=== PATIENT | female | born 1930 | race Caucasian/White ===

== ENCOUNTER 2018-07-16 12:13 | Inpatient (IN) | payer MEDICARE, BC ==
[~2018-07-16] VITALS: Ht 144.8 cm; Wt 44.1 kg
--- NOTE | ~2018-07-16 | HP ---
PATIENT: BLOSSOM JACKSON MEDICAL RECORD: [id number] ACCOUNT: [id number] LOCATION:ANDRAE Bridges1125 : [birth year] ADMISSION DATE: 07/16/18 PCP: THAD OLIVER MD HISTORY AND PHYSICAL EXAMINATION PSYCHIATRIC EVALUATION HISTORY OF PRESENT ILLNESS: Ms. Jackson is a [place] descent. 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 She is not known to have family in this area. She apparently went after having a brain aneurysm, went to a local retirement for a year and now is in apartment by herself. She has a friend that was bringing her food; however, the friend increasingly knows the food was left untouched. The patient was also found wandering down the streets by herself, confused, agitated, and was therefore danger to self. Friend brought her to a local Emergency Room facility for further evaluation and treatment. On interview, the patient has been, according to report, been going around the unit extremely agitated. She was not allowed per unit protocol to keep her cane and was offered a walker, but she keeps going around to staff and other patients stating that the doctor had told her to have her cane and has a piece of paper on her hand insisting that she needs to leave. When I could get her to be calm enough to answer questions, the patient did not know where she was. She told me; however, over and over that she went to two hospitals yesterday, which in fact she did at [facility] in here that she knew it was 2018, the last president she could remember was Judd. She had no idea why she was here or why she needed to be here. She would not answer questions as to suicidality, homicidality, auditory or visual hallucinations or delusions. PAST PSYCHIATRIC HISTORY: Unknown, but as far as the limited information we have, she has not had any prior history. PAST MEDICAL HISTORY: Per chart, brain aneurysm with STOCK HOLDER shunt, arthritis, osteoarthritis, dermatitis of the left ankle. ALLERGIES: SHE HAS STATED ALLERGIES TO PENICILLIN, DARVOCET AND LIPITOR. CURRENT MEDICATIONS: Include Kenalog 0.025% ointment one application topical b.i.d.; Norvasc (amlodipine) 5 mg 1 p.o. b.i.d.; triamterene/hydrochlorothiazide 75/50.5 one p.o. every day; Fosamax 70 mg 1 p.o. every 7 days; Nizoral 2% shampoo at bedtime; calcium carbonate 1 p.o. b.i.d. and multivitamin daily. FAMILY HISTORY: We are unsure of right now. SOCIAL HISTORY: As above. 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 Drugs and alcohol unclear at this moment, but there was no history per friend of this. LABORATORY DATA: Significant for an elevated BUN of 38, white count of 3.5. MENTAL STATUS EXAMINATION: This is an 87-year-old small woman of [place] descent, semi-cooperative with interview at bed, she did acknowledge my presence. After some urging, she would answer questions, but mainly was insistent on getting her cane back and telling me she has been to 2 hospitals. She had good eye contact. Her speech was rapid. Her mood was agitated. Her thought process was primarily irrational, irrelevant and goal directed thought HISTORY AND PHYSICAL [id number] RAMAKRISHNA,BLOSSOM SH content. She did not voice suicidal or homicidal ideation, auditory or visual hallucinations or delusions. Cognitive exam, she did not know where she was. She did know the year. She did not know the president. She was incorrect on the day, she thought it was Thursday and she thought the month was September. ASSESSMENT: Major neurocognitive disorder, mixed type, Alzheimer's, vascular, with behavioral disturbances, history of brain aneurysm with STOCK HOLDER shunt. PLAN: Admit to the group home standard. We will start the patient on Namenda, increasing dose starting at 2.5 mg b.i.d. to titrate upward weekly. We will consider Lamictal for behavioral agitation. APS has already been contacted as the patient does not seem to have any family support. We will also contact friend that brought her in to see to what extent of that person is willing to be official support for this patient. Dr. Ying to cover medical care. Case discussed with nursing. Chart was reviewed and the patient interviewed. Prognosis is likely poor. Anticipated length of stay is 7 to 14 days to better assess the patient's mental status and provide stabilization. Case discussed with nursing, interviewed and the patient reviewed. TRANSINT:[id number] Voice Confirmation ID: [id number] DOCUMENT ID: [id number] ESTRELLITA VOGT MD CC: [id number] DICTATION DATE: 07/17/18 1017 CLOTH SHRINKING SUPERVISOR: 07/17/18 1202 ADM IN [place] [id number] [place] [id number]
--- NOTE | ~2018-07-16 | PN ---
PATIENT:BLOSSOM DURBIN MEDICAL RECORD: [id number] LOCATION:Trina[facility]IC[facility]ay[facility] Bridges112 ADMISSION DATE: 07/16/18 PROGRESS NOTE DATE OF SERVICE: 07/19/2018 SUBJECTIVE: Ms. Durbin is an 87-year-old female of Martiniquais descent who had been living alone with the aid of a friend, but had apparently gotten so confused that she was wandering out in the street, becoming a danger to herself, not eating food brought to her. She here is verbally agitated physically with psychomotor agitation, constantly demanding. Has no insight into her limitations and just wants to go outside and walk with a cane and on interview will basically tell you over and over that her doctor had told her to go outside and walk with a cane. She had gotten so agitated last night that a p.r.n. was required. She ate 90% of breakfast and 0% of lunch and dinner. Her latest blood sugar is 99. She slept 6.25 hours last night and her last bowel movement was 07/18/2018. She does take her meds. OBJECTIVE: LATEST VITAL SIGNS: 97.9, 120, 146/70, 95%. ASSESSMENT: Unchanged. PLAN: ADS is involved in this patient as she clearly needs placement and is unable to take care of herself. She is supposed to ambulate with a walker, but as she does not like it and wants her cane, she is a fall risk and has required supervision for that fall risk and agitation. We have started Namenda over the weekend. Because of the agitation, we will add Geodon 20 mg once a day now considering her slight stature and heritage and we will increase to b.i.d. based on response. Case discussed with nursing. Chart reviewed and the patient interviewed. TRANSINT:[id number] Voice Confirmation ID: [id number] DOCUMENT ID: [id number] ESTRELLITA VOGT MD CC: [id number] DICTATION DATE: 07/19/18 120 PAPER TESTER: 07/19/18 1247 ADM IN [place] [address] [place] [address]
[2018-07-16] MEDS ORDERED: KENALOG 0.025%15 G2 TOPICAL (12:40)
[2018-07-16] MEDS ORDERED: NORVASC5 MG PO (12:41)
[2018-07-16] MEDS ORDERED: MAXZIDE 75/501 TAB PO (12:57)
[2018-07-16] MEDS ORDERED: ALENDRONATE SOD35 MG PO (12:58)
[2018-07-16] MEDS ORDERED: NIZORAL 2 % SH120 ML TOPICAL (12:58)
[2018-07-16] MEDS ORDERED: MULTI-DAY VITAM1 TAB PO (12:59)
[2018-07-16] MEDS ORDERED: CALCIUM 600 +1 EAC3 PO (12:59)
[2018-07-16 13:26] LABS: BASOPHILS 0.6 % (0-2); EOSINOPHILS 2.6 % (0-7); HEMOGLOBIN 12.3 g/dL (13.5-17.5); MCH 31.3 pg (26.0-34.0); MCHC 33.2 g/dL (31.0-37.0); MCV 94.1 fL (80.0-100.0); MEAN PLATELET VOLUME 8.6 fL (7.4-10.4); MONOCYTES 11.1 % (2-11); NEUTROPHILS 45.7 % (40-80); PLATELET COUNT 279 10x3/uL (130-400); RBC 3.93 10x6/uL (4.20-6.10); RDW 13.4 % (11.5-14.5); WBC 3.5 10x3/uL (4.8-10.8)
[2018-07-16 14:16] LABS: ALKALINE PHOSPHATASE 60 U/L (46-116); ALT (SGPT) 28 U/L (10-68); BILIRUBIN - TOTAL 0.29 mg/dL (0.2-1.3); CALC OSMOLALITY 285 mosm/kg (275-300); CALCIUM 10.1 mg/dL (8.5-10.1); CARBON DIOXIDE 23.5 mmol/L (21.0-32.0); CHLORIDE - SERUM 100 mmol/L (98-107); CHOL - HDL RATIO 3.6 ratio (2.3-4.9); CHOLESTEROL, TOTAL 242 mg/dL (0-200); GLUCOSE 154 mg/dL (74-106); HDL CHOLESTEROL 67 mg/dL (32-96); LDL CHOLESTEROL 147 mg/dL (0-100); LDL-HDL RATIO 2.2 ratio (1.5-3.5); POTASSIUM - SERUM 3.8 mmol/L (3.5-5.1); PROTEIN - SERUM 8.5 g/dL (6.4-8.2); SODIUM 137 mmol/L (136-145); THYROID STIMULATING HORMONE 1.17 uIU/mL (0.36-3.74); TRIGLYCERIDE 142 mg/dL (30-200); UREA NITROGEN 38 mg/dL (7-18); eGFR NON AFRICAN AMERICAN 75 mL/min (90-120)
[2018-07-16 20:00] VITALS: BP 113/70
[2018-07-16 20:25] VITALS: BP 139/69; BMI 21.0
[2018-07-17 06:15] LABS: VITAMIN D 25 HYDROXY 38.7 ng/mL (30.0-100.0)
[2018-07-17 08:16] LABS: RAPID PLASMA REAGIN Non Reactive (Non Reactive)
[2018-07-17 08:26] VITALS: BP 152/82
[2018-07-17 09:13] LABS: FOLATE (FOLIC ACID) - SERUM >20.0 ng/mL (>3.0)
[2018-07-17 11:57] VITALS: BMI 21.0
[2018-07-18 07:59] VITALS: BP 120/84
[2018-07-18 22:25] VITALS: BP 166/78
[2018-07-19 08:00] VITALS: BP 146/70
[2018-07-19 21:06] VITALS: BP 104/51
[2018-07-20 08:00] VITALS: BP 131/76
[2018-07-20 17:54] LABS: APPEARANCE CLEAR (CLEAR); BILIRUBIN NEGATIVE (NEGATIVE); COLOR YELLOW (YELLOW); GLUCOSE NEGATIVE (NEGATIVE); KETONE NEGATIVE (NEGATIVE); NITRITE NEGATIVE (NEGATIVE); PROTEIN NEGATIVE (NEGATIVE); SPECIFIC GRAVITY 1.015 (1.005-1.020); UROBILINOGEN NORMAL (NORMAL)
[2018-07-20 20:00] VITALS: BP 84/43
[2018-07-20 21:00] VITALS: BP 139/71
[2018-07-21 08:23] VITALS: BP 116/66
[2018-07-21 13:57] VITALS: BMI 21.0
[2018-07-21 13:58] VITALS: Ht 144.8 cm; Wt 44.1 kg
[2018-07-22 00:47] VITALS: BP 101/57
[2018-07-22 07:16] VITALS: BP 119/70
--- NOTE | 2018-07-22 15:50 | PN ---
PATIENT:BLOSSOM DURBIN MEDICAL RECORD: [id number] LOCATION:ANDRAE BridgesBandar ADMISSION DATE: 07/16/18 PROGRESS NOTE DATE OF SERVICE: 07/20/2018 SUBJECTIVE: The patient's case was discussed with staff. She has no new complaint. OBJECTIVE: The patient denies that she would seek to harm herself or others. She is much calmer, but clearly quite confused. ASSESSMENT: No change in diagnoses. PLAN: Supportive and educational interventions were made. Long-term prognosis is guarded. TRANSINT:[id number] Voice Confirmation ID: [id number] DOCUMENT ID: [id number] THAD OLIVER MD at 1550 CC: [id number] DICTATION DATE: 07/20/18 1635 PROGRAMMER DEVELOPER: 07/20/18 1652 ADM IN [place] [id number] [place] [address]
--- NOTE | 2018-07-22 15:50 | PN ---
PATIENT:BLOSSOM DURBIN MEDICAL RECORD: [id number] LOCATION:ANDRAE BridgesBandar ADMISSION DATE: 07/16/18 PROGRESS NOTE DATE OF SERVICE: 07/21/2018 SUBJECTIVE: The patient's case was discussed with staff. She has no new complaint. OBJECTIVE: The patient is in good behavioral control. She has limited insight about her condition. She tolerates her medicines well. ASSESSMENT: No change in diagnoses. PLAN: Brief supportive and educational interventions were made. Long-term prognosis is guarded. TRANSINT:[id number] Voice Confirmation ID: [id number] DOCUMENT ID: [id number] THAD OLIVER MD at 1550 CC: [id number] DICTATION DATE: 07/21/18 1643 WILDLIFE BIOLOGIST: 07/21/18 1748 ADM IN [place] [id number] [place] [address]
[2018-07-22 21:52] VITALS: BP 105/48
[2018-07-23 09:33] VITALS: BP 116/65
--- NOTE | 2018-07-23 13:53 | PN ---
PATIENT:BLOSSOM DURBIN MEDICAL RECORD: [id number] LOCATION:ANDRAE BridgesBandar ADMISSION DATE: 07/16/18 PROGRESS NOTE DATE OF SERVICE: 07/22/2018 SUBJECTIVE: The patient's case was discussed with staff. She has no new complaint. OBJECTIVE: The patient denies intent to harm herself or others. She is in good behavioral control. She does seem a little bit sleepy. ASSESSMENT: No change in diagnoses. PLAN: The patient will have her Seroquel reduced to 20 mg at bedtime. Her long-term prognosis is guarded. It is clear she is going to need fdc placement since she must have 18-dcff-y-day supervision and there is no one available who can provide that in a less restrictive environment. TRANSINT:[id number] Voice Confirmation ID: [id number] DOCUMENT ID: [id number] THAD OLIVER MD at 1353 CC: [id number] DICTATION DATE: 07/22/18 1708 MANOMETER TECHNICIAN: 07/22/18 2243 ADM IN [place] [id number] [place] [address]
[2018-07-23 20:00] VITALS: BP 116/67
[2018-07-24 08:27] VITALS: BP 113/65
--- NOTE | 2018-07-24 12:17 | PN ---
PATIENT:BLOSSOM DURBIN MEDICAL RECORD: [id number] LOCATION:ANDRAE BridgesBandar ADMISSION DATE: 07/16/18 PROGRESS NOTE DATE OF SERVICE: 07/23/2018 SUBJECTIVE: The patient's case was discussed with staff. She has no new complaint. OBJECTIVE: The patient is in good behavioral control with poor insight about her condition. She tolerates her medicines well. ASSESSMENT: No change in diagnoses. PLAN: Brief supportive and educational interventions were made. Long-term prognosis is guarded. TRANSINT:[id number] Voice Confirmation ID: [id number] DOCUMENT ID: [id number] THAD OLIVER MD at 1217 CC: [id number] DICTATION DATE: 07/23/18 1603 PREKINDERGARTEN TEACHER: 07/23/18 2317 ADM IN [place] [id number] [place] [address]
[2018-07-25 01:57] VITALS: BP 137/59
[2018-07-25 10:03] VITALS: BP 124/77
--- NOTE | 2018-07-25 11:49 | PN ---
PATIENT:BLOSSOM DURBIN MEDICAL RECORD: [id number] LOCATION:ANDRAE BridgesBandar ADMISSION DATE: 07/16/18 PROGRESS NOTE DATE OF SERVICE: 07/24/2018 SUBJECTIVE: The patient's case was discussed with staff. She has no new complaint. OBJECTIVE: The patient is in good behavioral control with limited insight about her condition. She generally tolerates her medicines well. ASSESSMENT: No change in diagnoses. PLAN: Supportive and educational interventions were made. Long-term prognosis is guarded. TRANSINT:[id number] Voice Confirmation ID: [id number] DOCUMENT ID: [id number] THAD OLIVER MD at 1149 CC: [id number] DICTATION DATE: 07/24/18 1413 DEPUTY FELONY CLERK: 07/24/18 1428 ADM IN [address] [address]
[2018-07-25 22:53] VITALS: BP 113/72
[2018-07-26 08:00] VITALS: BP 128/45
--- NOTE | 2018-07-26 15:29 | PN ---
PATIENT:BLOSSOM DURBIN MEDICAL RECORD: [id number] LOCATION:ANDRAE BridgesBandar ADMISSION DATE: 07/16/18 PROGRESS NOTE DATE OF SERVICE: 07/25/2018 SUBJECTIVE: The patient's case was discussed with staff. She has no new complaint. OBJECTIVE: The patient is in good behavioral control and only partially oriented. ASSESSMENT: No change in diagnoses. PLAN: Current medicines and therapies have been reviewed and will be maintained. Long-term prognosis is guarded. TRANSINT:[id number] Voice Confirmation ID: [id number] DOCUMENT ID: [id number] THAD OLIVER MD at 1529 CC: [id number] DICTATION DATE: 07/25/18 1159 HIGH RISK OB: 07/25/18 1222 ADM IN [place] [id number] [place] [address]
[2018-07-26 20:03] VITALS: BP 139/62
[2018-07-27 08:00] VITALS: BP 131/71
--- NOTE | 2018-07-27 12:02 | PN ---
PATIENT:BLOSSOM DURBIN MEDICAL RECORD: [id number] LOCATION:ANDRAE BridgesBandar ADMISSION DATE: 07/16/18 PROGRESS NOTE DATE OF SERVICE: 07/26/2018 SUBJECTIVE: The patient's case was discussed with staff. She has no new complaint. OBJECTIVE: The patient denies intent to harm herself or others. She generally tolerates her medicines well. ASSESSMENT: No change in diagnoses. PLAN: Current medicines have been reviewed. The patient clearly is going to need long-term placement. TRANSINT:[id number] Voice Confirmation ID: [id number] DOCUMENT ID: [id number] THAD OLIVER MD at 1202 CC: [id number] DICTATION DATE: 07/26/18 1612 FEEDMOBILE DRIVER: 07/26/18 2112 ADM IN [place] [id number] [place] [address]
[2018-07-28 07:50] VITALS: BP 117/57
--- NOTE | 2018-07-28 15:37 | PN ---
PATIENT:BLOSSOM DURBIN MEDICAL RECORD: [id number] LOCATION:ANDRAE BridgesBandar ADMISSION DATE: 07/16/18 PROGRESS NOTE DATE OF SERVICE: 07/27/2018 SUBJECTIVE: The patient's case was discussed with staff. She has no new complaint. OBJECTIVE: The patient denies intent to harm herself or others. She generally tolerates her medicines well. ASSESSMENT: No change in diagnoses. PLAN: Supportive and educational interventions were made. Long-term prognosis is guarded. I anticipate the patient can be transitioned out of the hospital soon. TRANSINT:[id number] Voice Confirmation ID: [id number] DOCUMENT ID: [id number] THAD OLIVER MD at 1537 CC: [id number] DICTATION DATE: 07/27/18 1318 VACUUM TANK TENDER: 07/27/18 1413 ADM IN [place] [id number] [place] [address]
[2018-07-28 22:09] VITALS: BP 120/60
[2018-07-29 07:49] VITALS: BP 125/67
--- NOTE | 2018-07-29 14:48 | PN ---
PATIENT:BLOSSOM DURBIN MEDICAL RECORD: [id number] LOCATION:ANDRAE BridgesBandar ADMISSION DATE: 07/16/18 PROGRESS NOTE DATE OF SERVICE: 07/28/2018 SUBJECTIVE: The patient's case was discussed with staff. She has no new complaint. OBJECTIVE: The patient denies intent to harm herself or others. She tolerates her medicines well. She has not been aggressive. ASSESSMENT: No change in diagnoses. PLAN: Current medicines and therapies have been reviewed. Long-term prognosis is guarded. TRANSINT:[id number] Voice Confirmation ID: [id number] DOCUMENT ID: [id number] THAD OLIVER MD at 1448 CC: [id number] DICTATION DATE: 07/28/18 1618 PAPER GOODS MACHINE OPERATOR: 07/29/18 0010 ADM IN [facility] [address] [place] [address]
[2018-07-29 20:00] VITALS: BP 130/58
[2018-07-30 08:10] VITALS: BP 112/57
[2018-07-30 20:08] VITALS: BP 149/67
[2018-07-31 08:01] VITALS: BP 117/62
--- NOTE | 2018-07-31 12:56 | PN ---
PATIENT:BLOSSOM DURBIN MEDICAL RECORD: [id number] LOCATION:ANDRAE BridgesBandar ADMISSION DATE: 07/16/18 PROGRESS NOTE DATE OF SERVICE: 07/29/2018 SUBJECTIVE: The patient's case was discussed with staff. She has no new complaint. OBJECTIVE: The patient denies intent to harm herself or others. She generally tolerates her medicines well. ASSESSMENT: No change in diagnoses. PLAN: The patient will be maintained on current medicines. Supportive and educational interventions were made. residential placement is being sought. TRANSINT:[id number] Voice Confirmation ID: [id number] DOCUMENT ID: [id number] THAD OLIVER MD at 1256 CC: [id number] DICTATION DATE: 07/29/18 1509 APPEALS REPRESENTATIVE: 07/29/18 2117 ADM IN [place] [address] [place] [address]
--- NOTE | 2018-07-31 12:56 | PN ---
PATIENT:BLOSSOM DURBIN MEDICAL RECORD: [id number] LOCATION:ANDRAE BridgesBandar ADMISSION DATE: 07/16/18 PROGRESS NOTE DATE OF SERVICE: 07/30/2018 SUBJECTIVE: The patient's case was discussed with staff. She has no new complaint. OBJECTIVE: The patient is in good behavioral control. She is tolerating her medicines well. Eye contact is fair. ASSESSMENT: No change in diagnoses. PLAN: Current medicines have been reviewed and will be maintained. Long-term prognosis is guarded. TRANSINT:[id number] Voice Confirmation ID: [id number] DOCUMENT ID: [id number] THAD OLIVER MD at 1256 CC: [id number] DICTATION DATE: 07/30/18 1647 FINISH PATCHER: 07/30/18 2322 ADM IN [place] [id number] [place] [address]
[2018-08-01 04:45] VITALS: BP 140/59
[2018-08-01 08:18] VITALS: BP 117/71
--- NOTE | 2018-08-01 12:21 | PN ---
PATIENT:BLOSSOM DURBIN MEDICAL RECORD: [id number] LOCATION:ANDRAE BridgesBanadr ADMISSION DATE: 07/16/18 PROGRESS NOTE DATE OF SERVICE: 07/31/2018 SUBJECTIVE: The patient's case was discussed with staff. She has no new complaint. OBJECTIVE: The patient is eating and sleeping reasonably well without any significant disruptive behavior. She is pretty limited in her insight. ASSESSMENT: No change in diagnoses. PLAN: The patient will be treated with Namenda at a slightly higher dose. Namenda is being used to treat her underlying cognitive impairment. She will be monitored for clinical changes associated with its use. TRANSINT:[id number] Voice Confirmation ID: [id number] DOCUMENT ID: [id number] THAD OLIVER MD at 1221 CC: [id number] DICTATION DATE: 07/31/18 1334 KNOT BUMPER: 07/31/18 1409 ADM IN [place] [id number] [place] [address]
--- NOTE | 2018-08-01 12:44 | PN ---
PATIENT:BLOSSOM DURBIN MEDICAL RECORD: [id number] LOCATION:ANDRAE BridgesBandar ADMISSION DATE: 07/16/18 PROGRESS NOTE DATE OF SERVICE: 08/01/2018 SUBJECTIVE: The patient's case was discussed with staff. She has no new complaint. OBJECTIVE: The patient is in good behavioral control with limited insight about her condition. She does tolerate her medicines well. ASSESSMENT: No change in diagnoses. PLAN: Current medicines have been reviewed and will be maintained. Long-term prognosis is guarded. TRANSINT:[id number] Voice Confirmation ID: [id number] DOCUMENT ID: [id number] THAD OLIVER MD at 1244 CC: [id number] DICTATION DATE: 08/01/18 1238 PHLEBOTOMIST: 08/01/18 1244 ADM IN [place] [address] [place] [address]
[2018-08-01 21:16] VITALS: BP 140/70
[2018-08-02 08:00] VITALS: BP 116/59
[2018-08-02 20:06] VITALS: BP 133/74
[2018-08-03 07:48] VITALS: BP 118/58
--- NOTE | 2018-08-03 15:21 | PN ---
PATIENT:BLOSSOM DURBIN MEDICAL RECORD: [id number] LOCATION:ANDRAE BridgesBandar ADMISSION DATE: 07/16/18 PROGRESS NOTE DATE OF SERVICE: 08/02/2018 SUBJECTIVE: The patient's case was discussed with staff. She has no new complaint. OBJECTIVE: The patient is in good behavioral control with very limited insight about her condition. She has not been significantly agitated and has settled into the hospital routine in a very appropriate way. Her overall prognosis is still fairly guarded and clearly she is going to need detention placement. Hopefully, that can be arranged soon. TRANSINT:[id number] Voice Confirmation ID: [id number] DOCUMENT ID: [id number] THAD OLIVER MD at 1521 CC: [id number] DICTATION DATE: 08/02/18 1616 INSTRUMENT MAKER: 08/02/18 1714 ADM IN [facility] [address] [place] [address]
[2018-08-03] MEDS ORDERED: GEMFIBROZIL600 MG PO (15:44)
[2018-08-03] MEDS ORDERED: NAMENDA5 MG PO (15:44)
[2018-08-03] MEDS ORDERED: GENTAMICIN 0.3 %5 ML EACH EYE (15:45)
[2018-08-03] MEDS ORDERED: VITAMIN C PO (15:45)
[2018-08-03] MEDS ORDERED: GEODON20 MG PO (15:45)
[2018-08-03 19:34] VITALS: BP 130/81
[2018-08-04 09:47] VITALS: BP 12/63
--- NOTE | 2018-08-04 15:56 | PN ---
PATIENT:BLOSSOM DURBIN MEDICAL RECORD: [id number] LOCATION:ANDRAE BridgesBandar ADMISSION DATE: 07/16/18 PROGRESS NOTE DATE OF SERVICE: 08/03/2018 SUBJECTIVE: The patient's case was discussed with staff. She has no new complaint. OBJECTIVE: The patient is in good behavioral control with limited insight about her condition. She tolerates her medicines well. ASSESSMENT: No change in diagnoses. PLAN: Current medicines and therapies have been reviewed, both will be maintained. TRANSINT:[id number] Voice Confirmation ID: [id number] DOCUMENT ID: [id number] THAD OLIVER MD at 1556 CC: [id number] DICTATION DATE: 08/03/18 1533 FOUNTAIN DISPENSER: 08/03/18 2217 ADM IN [place] [address] [place] [address]
[2018-08-04 22:07] VITALS: BP 130/60
[2018-08-05 09:25] VITALS: BP 128/56
--- NOTE | 2018-08-05 14:00 | PN ---
PATIENT:BLOSSOM DURBIN MEDICAL RECORD: [id number] LOCATION:ANDRAE BridgesBandar ADMISSION DATE: 07/16/18 PROGRESS NOTE DATE OF SERVICE: 08/04/2018 SUBJECTIVE: The patient's case was discussed with staff. She has no new complaint. OBJECTIVE: The patient denies intent to harm herself or others. She generally tolerates her medicines well. ASSESSMENT: No change in diagnoses. PLAN: Brief supportive and educational interventions were made. Long-term prognosis is guarded. The patient will be transitioned to a snf soon. TRANSINT:[id number] Voice Confirmation ID: [id number] DOCUMENT ID: [id number] THAD OLIVER MD at 1400 CC: [id number] DICTATION DATE: 08/04/18 1618 BRINE ROOM LABORER: 08/04/18 2231 ADM IN [facility] [address] [place] [address]
[2018-08-05 20:36] VITALS: BP 100/50
[2018-08-06 09:20] VITALS: BP 121/65; BP 82/52
--- NOTE | 2018-08-06 17:15 | PN ---
PATIENT:BLOSSOM DURBIN MEDICAL RECORD: [id number] LOCATION:ANDRAE MenaBrandyBandar ADMISSION DATE: 07/16/18 PROGRESS NOTE DATE OF SERVICE: 08/05/2018 SUBJECTIVE: The patient's case was discussed with staff. She has no new complaint. OBJECTIVE: The patient denies intent to harm herself or others. She tolerates her medicines well. ASSESSMENT: No change in diagnoses. PLAN: Fortunately, the patient was not injured after she fell yesterday. She is not complaining about anything related to that today. Hopefully, she can be [place]ed [place] the [place] [facility] [place] soon. Apparently, she has a small piece of property she [place], but that is going to be problematic regarding qualifying her financially for the [place] [facility] [place]. TRANSINT:[id number] Voice Confirmation ID: [id number] DOCUMENT ID: [id number] THAD OLIVER MD at 1715 CC: [id number] DICTATION DATE: 08/05/18 1421 PHOTOGRAPHIC TECHNICIAN: 08/05/18 1855 ADM IN [facility] [address] [place] [address]
[2018-08-06 18:41] LABS: BASOPHILS 0.2 % (0-2); EOSINOPHILS 0.1 % (0-7); HEMATOCRIT 35.7 % (36.0-48.0); HEMOGLOBIN 12.3 g/dL (12-16); IMMATURE GRANULOCYTES 1.4 % (0-5); LYMPHOCYTES 9.3 % (15-50); MCH 31.5 pg (26.0-34.0); MCHC 34.5 g/dL (31.0-37.0); MCV 91.5 fL (80.0-100.0); MEAN PLATELET VOLUME 8.6 fL (7.4-10.4); RDW 13.6 % (11.5-14.5); WBC 13.9 10x3/uL (4.8-10.8)
[2018-08-06 18:50] LABS: PLATELET COUNT 470 10x3/uL (130-400)
[2018-08-06 18:55] LABS: ANION GAP 17.5 mmol/L (8-16); CALCIUM 10.5 mg/dL (8.5-10.1); CARBON DIOXIDE 24.3 mmol/L (21.0-32.0); CREATININE - SERUM 1.3 mg/dL (0.6-1.3); POTASSIUM - SERUM 4.8 mmol/L (3.5-5.1)
[2018-08-06 19:31] VITALS: BP 110/50
[2018-08-07 08:12] VITALS: BP 96/54
--- NOTE | 2018-08-07 12:03 | PN ---
PATIENT:BLOSSOM DURBIN MEDICAL RECORD: [id number] LOCATION:ANDRAE BridgesBandar ADMISSION DATE: 07/16/18 PROGRESS NOTE DATE OF SERVICE: 08/06/2018 SUBJECTIVE: The patient's case was discussed with staff. She has no new complaint. OBJECTIVE: The patient is quite confused. She is telling me something in broken Slovak and Swedish and pointing to the chair beside her. It is clear that she is hallucinating something, but I am not sure what the problem is. When I turned her chair around, she seems to be relieved by that. This is an isolated event. She generally has been doing very well in the past several days and in fact, I was planning to discharge her soon, but this bizarre event this afternoon is going to necessitate at least a few more days of observation before I think she would be ready for group home placement. I have reviewed her medicines. I am reluctant to make additional increases in her antipsychotic medicine based on this one event. I think it is reasonable to just observe her and see how she is behaving tomorrow. TRANSINT:[id number] Voice Confirmation ID: [id number] DOCUMENT ID: [id number] THAD OLIVER MD at 1203 CC: [id number] DICTATION DATE: 08/06/18 1739 X RAY NURSE: 08/06/18 2155 ADM IN [place] [address] [place] [id number]
[2018-08-07 20:22] VITALS: BP 128/67
[2018-08-08 07:00] VITALS: BP 117/63
[2018-08-08 19:26] VITALS: BP 111/61
[2018-08-09 07:00] VITALS: BP 99/59
[2018-08-09 07:17] LABS: BASOPHILS 0.2 % (0-2); EOSINOPHILS 0.2 % (0-7); HEMATOCRIT 36.9 % (36.0-48.0); HEMOGLOBIN 12.5 g/dL (12-16); IMMATURE GRANULOCYTES 2.8 % (0-5); LYMPHOCYTES 14.2 % (15-50); MCH 31.1 pg (26.0-34.0); MCHC 33.9 g/dL (31.0-37.0); MCV 91.8 fL (80.0-100.0); MEAN PLATELET VOLUME 8.5 fL (7.4-10.4); MONOCYTES 4.7 % (2-11); NEUTROPHILS 77.9 % (40-80); RBC 4.02 10x6/uL (4.00-5.40); RDW 13.4 % (11.5-14.5); WBC 9.5 10x3/uL (4.8-10.8)
[2018-08-09 07:37] LABS: PLATELET COUNT 577 10x3/uL (130-400)
[2018-08-09 07:43] LABS: ANION GAP 19.4 mmol/L (8-16); CALCIUM 11.2 mg/dL (8.5-10.1); CARBON DIOXIDE 23.8 mmol/L (21.0-32.0); CREATININE - SERUM 1.8 mg/dL (0.6-1.3); POTASSIUM - SERUM 4.2 mmol/L (3.5-5.1)
--- NOTE | 2018-08-09 14:45 | PN ---
PATIENT:BLOSSOM DURBIN MEDICAL RECORD: [id number] LOCATION:ANDRAE Bridges112 ADMISSION DATE: 07/16/18 PROGRESS NOTE DATE OF SERVICE: 08/07/2018 SUBJECTIVE: The patient's case was discussed with staff. She has no new complaint. OBJECTIVE: The patient is poorly oriented, but in good behavioral control. She has limited insight about her situation. ASSESSMENT: No change in diagnoses. PLAN: Brief supportive and educational interventions were made. Long-term prognosis is guarded. TRANSINT:[id number] Voice Confirmation ID: [id number] DOCUMENT ID: [id number] THAD OLIVER MD at 1445 CC: [id number] DICTATION DATE: 08/07/18 1316 CORNER BLOCK CUTTER: 08/08/18 0009 ADM IN [place] [id number] [place] [address]
--- NOTE | 2018-08-09 14:45 | PN ---
PATIENT:BLOSSOM DURBIN MEDICAL RECORD: [id number] LOCATION:ANDRAE Bridges112 ADMISSION DATE: 07/16/18 PROGRESS NOTE DATE OF SERVICE: 08/08/2018 SUBJECTIVE: The patient's case was discussed with staff. She has no new complaint. OBJECTIVE: The patient is in good behavioral control. She has very limited insight about her condition. She is tolerating her current medicines reasonably well. I would anticipate that if current levels of improvement continue, then she can be reasonably transitioned out of the hospital. TRANSINT:[id number] Voice Confirmation ID: [id number] DOCUMENT ID: [id number] THAD OLIVER MD at 1445 CC: [id number] DICTATION DATE: 08/08/18 1234 TOBACCO SIEVE OPERATOR: 08/08/18 1517 ADM IN [place] [address] [place] [address]
[2018-08-09 21:16] VITALS: BP 108/54
[2018-08-10 07:00] VITALS: BP 95/61
--- NOTE | 2018-08-10 15:38 | PN ---
PATIENT:BLOSSOM DURBIN MEDICAL RECORD: [id number] LOCATION:ANDRAE BridgesBandar ADMISSION DATE: 07/16/18 PROGRESS NOTE DATE OF SERVICE: 08/09/2018 SUBJECTIVE: The patient's case was discussed with staff. She has no new complaint. OBJECTIVE: The patient denies intent to harm herself or others. She generally tolerates her medicines well. Eye contact is fair. ASSESSMENT: No change in diagnoses. PLAN: Supportive and educational interventions were made. Long-term prognosis is guarded. I anticipate she can be transitioned out of the hospital soon. TRANSINT:[id number] Voice Confirmation ID: [id number] DOCUMENT ID: [id number] THAD OLIVER MD at 1538 CC: [id number] DICTATION DATE: 08/09/18 1500 KNOT BUMPER: 08/09/18 1858 ADM IN [facility] [address] [place] [id number]
[2018-08-10 21:34] VITALS: BP 100/48
[2018-08-11 08:23] VITALS: BP 114/65
--- NOTE | 2018-08-11 13:01 | PN ---
PATIENT:BLOSSOM DURBIN MEDICAL RECORD: [id number] [facility] AD[facility]ION DATE: 07/16/18 PROGRESS NOTE DATE OF SERVICE: 08/10/2018 SUBJECTIVE: The patient's case was discussed with staff. She has no new complaint. OBJECTIVE: The patient is in good behavioral control. She has no thoughts of harming herself or others. She is not eating very well, but it is adequate given the fact that she is 4 feet 9 inches tall and weighs 97 pounds. ASSESSMENT: Vascular dementia. PLAN: The patient will be transitioned out of the hospital in the morning. Her long-term prognosis is guarded. TRANSINT:[id number] Voice Confirmation ID: [id number] DOCUMENT ID: [id number] THAD OLIVER MD at 1301 CC: [id number] DICTATION DATE: 08/10/18 1615 RIVER CAPTAIN: 08/10/18 1719 ADM IN [place] [id number] [place] [id number]
--- NOTE | 2018-08-12 13:03 | PN ---
PATIENT:BLOSSOM DURBIN MEDICAL RECORD: [id number] LOCATION:[facility] ADMISSION DATE: 07/16/18 PROGRESS NOTE DATE OF SERVICE: 08/11/2018 SUBJECTIVE: The patient's case was discussed with staff. She has no new complaint. OBJECTIVE: The patient is in good behavioral control. She is very limited in her insight. She has no aggressive behaviors. ASSESSMENT: Vascular dementia. PLAN: The patient's POA, Genadonald Todd, was contacted by phone. Her questions regarding the patient's condition were answered. It was explained that the patient is in need of 52-zhly-b-day supervision. The caregiver, POA, friend, and her were frustrated that they have been unable to get the patient into the group home. We have been unable to make that happen. The issue is related to the patient owning some property [place] of [place] that is preventing her from getting long-term care. The group home would be happy to accept her if they could pay the fee until this could be resolved, but either that cannot happen or for some other reason it is not going to happen. The patient was transitioned or will be transitioned to a group living home today. Followup will be with her primary care physician. I think her long-term prognosis is guarded from a behavioral standpoint. WITH regard to her dementia, if the information the caregiver, friend supplied is correct, she is declining at a rapid pace. TRANSINT:[id number] Voice Confirmation ID: [id number] DOCUMENT ID: [id number] THAD OLIVER MD at 1303 CC: [id number] DICTATION DATE: 08/11/18 1517 HAM CLERK: 08/12/18 0013 DIS IN 08/11/18 [facility] [address] [place] [id number]
--- NOTE | 2018-08-13 13:49 | DS ---
PATIENT:BLOSSOM DURBIN :[birth year] MEDICAL RECORD: [id number] DISCHARGE SUMMARY ADMISSION DATE: 07/16/18 DISCHARGE DATE: 08/11/18 IDENTIFYING DATA: The patient is 87 years old and she was admitted to the hospital on a voluntary basis. She has no family or children in this area. Her German of many years . She does have some family friends who are assisting her. She has been living in an apartment by herself, but others are having to bring her food. She is wandering off quite confused. At times, she is agitated and representing a danger to herself. A friend brought her to the Emergency Room for evaluation and treatment. The patient was quite calm, but very disorganized and actually had previously been displaying some psychotic symptoms. HOSPITAL COURSE: The patient was admitted to the hospital and fully evaluated from both a medical, psychological, and social standpoint. She was treated with both memory enhancing and mood stabilizing medications and did show significant improvement through the course of the hospitalization. She subsequently was transitioned to an assisted living center. DISCHARGE DIAGNOSES: AXIS I: Vascular dementia. AXIS II: None. AXIS III: Hypertension, osteoporosis. AXIS IV: Moderate. AXIS V: Global assessment of functioning is 30. PLAN: At the time of discharge, the patient was not acutely aggressive or psychotic. She was tolerating her medicines well. Followup is to be with her primary care physician. Her long-term prognosis is guarded. TRANSINT:[id number] Voice Confirmation ID: [id number] DOCUMENT ID: [id number] THAD OLIVER MD at 1349 CC: [id number] DICTATION DATE: 08/12/18 1319 LIGHT EQUIPMENT OPERATOR: 08/13/18 0038 DIS IN 08/11/18 [place] [id number] [place] [id number]
== END 2018-08-11 14:15 | disposition home or self-care (01) | DRG 57 ==
LOC: D.PSYCH 12:13 → EDSEX 12:15 → D.PSYCH 12:15
PROVIDERS: Family Medicine; ADMIT Psychiatry & Neurology Psychiatry; ATTEND Psychiatry & Neurology Psychiatry
DX: G30.9 Alzheimer's disease, unspecified (principal); F02.81 Dementia in other diseases classified elsewhere, unspecified severity, with behavioral disturbance; F01.51 Vascular dementia, unspecified severity, with behavioral disturbance; I67.1 Cerebral aneurysm, nonruptured; M19.90 Unspecified osteoarthritis, unspecified site; M25.551 Pain in right hip; W19.XXXA Unspecified fall, initial encounter; J43.9 Emphysema, unspecified; H10.9 Unspecified conjunctivitis; L30.9 Dermatitis, unspecified; M81.0 Age-related osteoporosis without current pathological fracture; I10 Essential (primary) hypertension; E11.9 Type 2 diabetes mellitus without complications; E86.0 Dehydration; E78.5 Hyperlipidemia, unspecified